=== PATIENT | male | born 1960 | race Caucasian/White ===

== ENCOUNTER → 2017-02-09 | Outpatient (CLI) | payer BC, OTHER ==
[~2017-02-09] MED LIST: ASPI-232 PO; HYDR25TA5 PO; LISI-461 PO; MULTTAB58 PO; PRAV40TA2 PO; VSNOPS OPB; ZNTT/150 PO
[2017-02-09 09:50] LABS: ALT/SGPT 55 U/L (12-78); BLOOD UREA NITROGEN 20 mg/dl (7-18); BUN/CREATININE RATIO 18.3 (10-20); CALCIUM 9.7 mg/dl (8.5-10.1); CARBON DIOXIDE 29 mmol/L (21-32); CHLORIDE 103 mmol/L (98-107); CHOLESTEROL 205 mg/dl (0-200); GLUCOSE 112 mg/dl (70-99); POTASSIUM 4.3 mmol/L (3.5-5.1); SODIUM 139 mmol/L (136-145); TRIGLYCERIDES 380 mg/dl (0-150); VERY LOW DENSITY LIPOPROT CALC 76 mg/dl
[2017-02-09 09:53] LABS: ALB/GLOB RATIO 1.3 (0.9-2); ALKALINE PHOSPHATASE 61 U/L (45-117); AST/SGOT 20 U/L (15-37); CHOLESTEROL/HDL RATIO 5.1; HDL CHOLESTEROL 40 mg/dl; LDL CHOLESTEROL CALCULATED 89 mg/dl
== END | disposition home or self-care (01) ==
LOC: C.LAB1850 07:08
PROVIDERS: ATTEND Family Medicine
DX: E78.5 Hyperlipidemia, unspecified (principal); I10 Essential (primary) hypertension

== ENCOUNTER 2020-12-18 16:34 | Observation (INO) ==
--- NOTE | 2020-12-18 17:16 | Emergency Department Note ---
Impression & Plan Midsternal chest pain ED Provider Note CHIEF COMPLAINT: Chest pain HISTORY OF PRESENTING ILLNESS: This is a 60-year-old male who presents to the emergency department by private vehicle with complaint of midsternal chest pain that started about 3 PM. The patient states it felt like "indigestion" and came on fairly suddenly, the pain did not radiate, but it did become very intense for short time. Currently he states that his chest pain has fully resolved and he rates his pain level 0/10. He notes that he was driving home from work around 4 PM and started to feel lightheaded and also noticed some pain and numbness/tingling which he describes as a "[id number]-[id number]-lmnriyl" feeling in his left arm with the chest pain, which prompted him to come to the emergency department. He denies any associated shortness of breath, nausea, vomiting, or diaphoresis. He denies any history of SD or known cardiac disease. He does have a history of hypertension and hyperlipidemia, but is not diabetic. He is not a smoker but does use chewing tobacco. He denies any known family history of heart disease. He notes that he has had a stress test in the past that he believes was about 5 years ago. He takes a baby aspirin daily, he denies any other blood thinner medications REVIEW OF SYSTEMS: A complete 10 point review of systems was reviewed with the patient with pertinent positives and negatives as per history of present illness. All else were negative. PAST MEDICAL HISTORY: Hypertension, hyperlipidemia, GERD SOCIAL HISTORY: Lives at home, daily tobacco user ALLERGIES: Reviewed in chart and with the patient PHYSICAL EXAM: CONSTITUTIONAL: Pleasant and cooperative. Nontoxic-appearing and in no acute distress. Well appearing and well nourished. HEENT: Normocephalic, atraumatic. NECK: Supple, full active range of motion without discomfort. No JVD. RESPIRATORY: Clear to auscultation bilaterally with no wheezing, crackles, rhonchi or stridor. Equal expansion bilaterally. CARDIOVASCULAR: Regular rate and rhythm with no murmurs, rubs or gallops. Normal peripheral perfusion, 2+ pulses in all 4 extremities. No pitting edema. GASTROINTESTINAL: Soft, nontender, nondistended. No palpable masses or HSM. Bowel sounds present in all quadrants. No CVA tenderness bilaterally. MUSCULOSKELETAL: Full range of motion of all joints without discomfort. INTEGUMENTARY: No rash or other significant dermatologic conditions noted. NEUROLOGIC: Alert and oriented X 4 with normal affect. 5/5 strength and normal sensation in all 4 extremities. Normal speech. Normal gait observed. ED COURSE AND MEDICAL DECISION MAKING: CC: Patient presenting with complaint of chest pain DIFFERENTIAL DIAGNOSIS: Includes, but not limited to acute coronary syndrome, pulmonary embolism, aortic dissection, pneumothorax, pericarditis, myocarditis, endocarditis, anxiety, musculoskeletal pain, GERD, costochondritis, pneumonia, among others. INTERPRETATION OF LABS: No leukocytosis, no anemia, normal platelets, no significant electrolyte abnormalities, normal renal function, normal liver enzymes. Troponin is undetectable. Coagulation factors within normal limits. EKG: Shows normal sinus rhythm with a rate of 63 bpm, normal intervals, no ST elevation or depression, no ectopy, no significant change when compared to previous EKG from 08/14/2001by my interpretation. MEDICATION RECONCILIATION: I attest that I have personally reviewed the patient's current medication list. INITIAL VITAL SIGNS REVIEW: I reviewed the patient's initial vital signs and interpret them as follows: T: Afebrile; BP: Hypertensive; HR: Within normal limits; RR: Within normal limits; Pulse Ox: Within normal limits on room air. MDM SUMMARY: Patient was evaluated at bedside, history and physical exam performed. Patient is alert and oriented, in no acute distress, resting calmly in stretcher. He is nontoxic-appearing and afebrile. He is noted to be hypertensive. No extremity edema. Blood pressures were performed by myself in both upper extremities and are equal bilaterally. Lungs are clear with good air movement. He is not tachypneic or hypoxic. He is neurologically intact with no focal deficits. He describes a [id number]-bhubred feeling in his left arm, but sensation is intact to light touch and he has normal strength. Cardiac monitoring: An order was placed for continuous cardiac monitoring. The monitor shows a rate of 65 bpm with normal sinus rhythm. Heart score of 4, moderate risk. Orders were placed for labs including troponin, EKG, chest x-ray, CT angio of the chest to evaluate for chest pain. Patient discussed with Dr. Babb, who agrees with my assessment, plan, and disposition. Labs and imaging reviewed, no significant lab abnormalities. Initial troponin is undetectable. Chest x-ray showed mild cardiomegaly with no acute abnormalities. CTA of the chest was negative for aortic dissection, pulmonary embolism, or any other abnormalities. Patient reassessed multiple times throughout ED stay, he has remained hemodynamically stable and chest pain-free, as well as neurologically intact. The patient was updated on all results, and I did recommend admission for observation and a stress test in the morning. The patient was agreeable to this plan. I spoke on the phone with Dr. Kirby, [facility] hospitalist, who agrees to evaluate the patient for admission. The patient was stable at time of admission. The chart was completed utilizing [employer] voice recognition software. Grammatical errors, random word insertions, pronoun errors, and incomplete sentences are an occasional consequence of this system due to software limitations, ambient noise, and hardware issues. Any formal questions or concerns about the content, text, or information contained within the body of this dictation should be directly addressed to the nurse practitioner for clarification. Past Med/Surg History Medical History (Updated 12/18/20 @ 20:42 by NARDA Coles) Benign neoplasm of colon Dyslipidemia Dysplastic nevus Esophageal reflux HTN (hypertension) Impaired fasting glucose Low bone mass Subclinical hyperthyroidism Vitamin D deficiency Social History Tobacco Type: Smokeless Tobacco (Dip or Chew) Preferred Language: Turkish Feels Safe at Home: Yes Allergies Allergies Allergy/AdvReac Type Severity Reaction Status Date / Time simvastatin Allergy Intermediate DRY MOUTH Verified 12/18/20 17:17 ACHY MUSCLES Penicillins Allergy Mild RASH Verified 12/18/20 17:17 Sulfa (Sulfonamide Allergy Mild RASH Verified 12/18/20 17:17 Antibiotics) Home Meds Home Medications Medication Instructions Recorded Confirmed hydrochlorothiazide 25 mg tablet 25 mg PO DAILY 05/01/20 12/18/20 lisinopril 10 mg tablet 10 mg PO DAILY 05/01/20 12/18/20 pravastatin 40 mg tablet 40 mg PO DAILY 05/01/20 12/18/20 aspirin 81 mg tablet,delayed 81 mg PO DAILY 05/07/20 12/18/20 release multivitamin 1 tab PO DAILY 05/07/20 12/18/20 peg [id number] 1 1 drp OPHTHALMIC (EYE) DAILY PRN 05/07/20 12/18/20 %-0.2 %-0.2 % eye drops ascorbic acid (vitamin C) 1,000 mg 1 g PO DAILY tab 07/23/20 12/18/20 tablet cholecalciferol (vitamin D3) 125 mcg PO DAILY 12/18/20 12/18/20 [Vitamin D3] famotidine 40 mg PO HS 12/18/20 12/18/20 fiber 1 tab PO DAILY 12/18/20 12/18/20 pantoprazole 40 mg PO DAILYBB 12/18/20 12/18/20 Previous Rx's Medication Instructions Recorded methimazole 5 mg tablet 10 mg PO DAILY #180 tab 11/18/20 Results & Data (ED) Vital Signs Vital Signs - 24 hr 12/18/20 16:41 12/18/20 16:56 12/18/20 16:57 Temperature 36.6 C Temperature Source Temporal Artery Scan Pulse Rate 64 60 Pulse Rate from SpO2 Sensor Respiratory Rate 18 19 Blood Pressure 163/81 H 162/79 H Blood Pressure Mean 108 106 Blood Pressure Position Sitting Pulse Oximetry 100 Oxygen Delivery Method Room Air Room Air Sepsis Recent Fever Within 48 Hours No Sepsis New/Unexplained Change in Mental Status No Sepsis Action Taken by Nursing No Action Required 12/18/20 16:58 12/18/20 17:00 12/18/20 17:06 Temperature Temperature Source Pulse Rate 64 63 65 Pulse Rate from SpO2 Sensor Respiratory Rate 20 23 12 Blood Pressure 151/100 H 159/95 H Blood Pressure Mean 117 116 Blood Pressure Position Pulse Oximetry Oxygen Delivery Method Sepsis Recent Fever Within 48 Hours Sepsis New/Unexplained Change in Mental Status Sepsis Action Taken by Nursing 12/18/20 17:10 12/18/20 17:20 12/18/20 17:30 Temperature Temperature Source Pulse Rate 66 67 64 Pulse Rate from SpO2 Sensor 67 64 Respiratory Rate 16 20 13 Blood Pressure 146/92 H Blood Pressure Mean 110 Blood Pressure Position Pulse Oximetry 96 98 Oxygen Delivery Method Room Air Room Air Sepsis Recent Fever Within 48 Hours Sepsis New/Unexplained Change in Mental Status Sepsis Action Taken by Nursing 12/18/20 17:40 12/18/20 17:50 12/18/20 18:07 Temperature Temperature Source Pulse Rate 64 64 71 Pulse Rate from SpO2 Sensor 64 64 71 Respiratory Rate 20 17 22 Blood Pressure Blood Pressure Mean Blood Pressure Position Pulse Oximetry 97 97 100 Oxygen Delivery Method Room Air Room Air Room Air Sepsis Recent Fever Within 48 Hours Sepsis New/Unexplained Change in Mental Status Sepsis Action Taken by Nursing 12/18/20 18:10 12/18/20 18:20 12/18/20 18:30 Temperature Temperature Source Pulse Rate 62 64 61 Pulse Rate from SpO2 Sensor 62 65 62 Respiratory Rate 15 18 13 Blood Pressure Blood Pressure Mean Blood Pressure Position Pulse Oximetry 99 98 98 Oxygen Delivery Method Room Air Room Air Room Air Sepsis Recent Fever Within 48 Hours Sepsis New/Unexplained Change in Mental Status Sepsis Action Taken by Nursing 12/18/20 19:00 12/18/20 19:08 12/18/20 19:30 Temperature Temperature Source Pulse Rate 62 61 62 Pulse Rate from SpO2 Sensor 64 62 62 Respiratory Rate 14 14 19 Blood Pressure 166/108 H 167/102 H Blood Pressure Mean 127 123 Blood Pressure Position Pulse Oximetry 96 98 96 Oxygen Delivery Method Sepsis Recent Fever Within 48 Hours Sepsis New/Unexplained Change in Mental Status Sepsis Action Taken by Nursing 12/18/20 19:57 12/18/20 20:00 Temperature Temperature Source Pulse Rate 61 61 Pulse Rate from SpO2 Sensor 61 60 Respiratory Rate 17 15 Blood Pressure 184/106 H 179/108 H Blood Pressure Mean 132 131 Blood Pressure Position Pulse Oximetry 98 98 Oxygen Delivery Method Sepsis Recent Fever Within 48 Hours Sepsis New/Unexplained Change in Mental Status Sepsis Action Taken by Nursing Laboratory Data Result diagrams: 12/18/20 16:55 12/18/20 16:55 Lab Results 12/18/20 12/18/20 12/18/20 Range/Units 16:55 16:55 17:30 WBC 9.88 (4.8-10.8) K/uL RBC 5.22 (4.7-6.1) M/uL Hgb 15.8 (14.0-18.0) g/dL Hct 47.1 (42-52) % MCV 90.2 (80-100) fL MCH 30.3 (25-34) pg MCHC 33.5 (32-36) g/dL RDW Std Deviation 43.3 (36.4-46.3) fL RDW Coeff of Rafael 13.1 (11.5-14.5) % Plt Count 250 (130-400) K/uL MPV 10.5 H (7.4-10.4) fL Immature Gran % (Auto) 0.3 % Neut % (Auto) 49.8 % Lymph % (Auto) 32.3 % [place] % (Auto) 12.8 % Eos % (Auto) 4.5 % Baso % (Auto) 0.3 % Neut # (Auto) 4.93 (1.4-6.5) K/uL Lymph # (Auto) 3.19 (1.2-3.4) K/uL [place] # (Auto) 1.26 H (0.11-0.59) K/uL Eos # (Auto) 0.44 (0-0.5) K/uL Baso # (Auto) 0.03 (0-0.2) K/uL Immature Gran # (Auto) 0.03 H (0.00-0.02) K/uL APTT 27.1 (21.0-31.0) Seconds PTT Ratio 1.0 Sodium 138 (136-145) mmol/L Potassium 3.5 (3.5-5.1) mmol/L Chloride 103 (98-107) mmol/L Carbon Dioxide 27 (21-32) mmol/L Anion Gap 8.0 (3-11) BUN 20 H (7-18) mg/dl Creatinine 1.11 (0.6-1.4) mg/dl Est Cr Clr Drug Dosing 75.0 ml/min Est GFR ( Amer) 82.6 ml/min Est GFR (Non-Af Amer) 71.3 ml/min BUN/Creatinine Ratio 18.3 (10-20) Glucose 99 (70-99) mg/dl Calcium 9.6 (8.5-10.1) mg/dl Magnesium 2.5 H (1.8-2.4) mg/dl Total Bilirubin 0.4 (0.2-1) mg/dl AST 19 (15-37) U/L ALT 41 (12-78) U/L Alkaline Phosphatase 66 (45-117) U/L Troponin I < 0.015 (0-0.045) ng/ml Total Protein 8.3 H (6.4-8.2) gm/dl Albumin 4.8 (3.4-5.0) gm/dl Globulin 3.5 (2.5-4.0) gm/dl Albumin/Globulin Ratio 1.4 (0.9-2) Lipase 136 (73-393) U/L COVID-19 Eval Order 12/18/20 Range/Units 19:10 WBC (4.8-10.8) K/uL RBC (4.7-6.1) M/uL Hgb (14.0-18.0) g/dL Hct (42-52) % MCV (80-100) fL MCH (25-34) pg MCHC (32-36) g/dL RDW Std Deviation (36.4-46.3) fL RDW Coeff of Rafael (11.5-14.5) % Plt Count (130-400) K/uL MPV (7.4-10.4) fL Immature Gran % (Auto) % Neut % (Auto) % Lymph % (Auto) % [place] % (Auto) % Eos % (Auto) % Baso % (Auto) % Neut # (Auto) (1.4-6.5) K/uL Lymph # (Auto) (1.2-3.4) K/uL [place] # (Auto) (0.11-0.59) K/uL Eos # (Auto) (0-0.5) K/uL Baso # (Auto) (0-0.2) K/uL Immature Gran # (Auto) (0.00-0.02) K/uL APTT (21.0-31.0) Seconds PTT Ratio Sodium (136-145) mmol/L Potassium (3.5-5.1) mmol/L Chloride (98-107) mmol/L Carbon Dioxide (21-32) mmol/L Anion Gap (3-11) BUN (7-18) mg/dl Creatinine (0.6-1.4) mg/dl Est Cr Clr Drug Dosing ml/min Est GFR ( Amer) ml/min Est GFR (Non-Af Amer) ml/min BUN/Creatinine Ratio (10-20) Glucose (70-99) mg/dl Calcium (8.5-10.1) mg/dl Magnesium (1.8-2.4) mg/dl Total Bilirubin (0.2-1) mg/dl AST (15-37) U/L ALT (12-78) U/L Alkaline Phosphatase (45-117) U/L Troponin I (0-0.045) ng/ml Total Protein (6.4-8.2) gm/dl Albumin (3.4-5.0) gm/dl Globulin (2.5-4.0) gm/dl Albumin/Globulin Ratio (0.9-2) Lipase (73-393) U/L COVID-19 Eval Order Covid19 at [facility] Administered Medications Discontinued Medications Ioversol (Optiray 350 500ml) 120 ml IV ONCE ONE Stop: 12/18/20 17:59 Last Admin: 12/18/20 17:58 Dose: 120 ml Documented by: [id number] Imaging Data Radiologist's Impression: Chest CTA 12/18/20 17:10 CHEST CTA for AORTIC DISSECTION CT DOSE: 1136.75 mGy.cm HISTORY: Atypical chest pain, left arm numbness, lightheaded TECHNIQUE: Multiaxial CT images of the chest were performed both before and after the intravenous administration of contrast to evaluate the aorta. Maximal intensity projection images were also obtained. A dose lowering technique was utilized adhering to the principles of ALARA. COMPARISON STUDY: Chest 12/18/2020. FINDINGS: Noncontrast imaging through the chest shows no evidence for an intramural hematoma within the thoracic aorta. Normal caliber thoracic aorta with no evidence for dissection. No filling defects within the pulmonary arteries to suggest a pulmonary embolus. Limited views of the upper abdomen demonstrate a normal liver, spleen, and adrenal glands. Normal esophagus. No mediastinal or hilar lymphadenopathy. No pleural or pericardial effusions. A 5 mm right thyroid nodule. This does not meet CT criteria for follow-up. No fractures within the visualized osseous structures. No pneumothorax. The central airways are patent. A 3 mm subpleural nodule within the left lower lobe on image 164. No focal lung consolidations to suggest pneumonia. Mild nodular thickening along the right major fissure. This is likely benign. IMPRESSION: 1. No evidence for an aortic dissection. 2. A 3 mm subpleural nodule within the left lower lobe. Please refer to the chart below for recommended follow-up. 3. No focal lung consolidations to suggest pneumonia. ACT 112: Negative or not required by law. Electronically signed by: Abhi Madrid M.D. 12/18/2020 6:15 PM Chest X-Ray 12/18/20 17:10 SINGLE VIEW CHEST CLINICAL HISTORY: Atypical chest pain. FINDINGS: An AP, portable, upright chest radiograph is obtained. No prior studies are available for comparison at the time of dictation. The heart is enlarged. The pulmonary vasculature is noncongested. Mild atelectasis is noted the lung bases. The lungs and pleural spaces are otherwise clear. No pneumothorax is seen. The bony thorax is grossly intact. IMPRESSION: Mild cardiomegaly with no acute cardiopulmonary abnormality. ACT 112: Negative or not required by law. Electronically signed by: Scott Herring M.D. 12/18/2020 5:50 PM Discharge Plan Visit Data Chief Complaint: Chest Pain Stated Complaint: CHEST PAIN, LEFT HAND IS NUMB ED Provider: Regla Babb ED Midlevel Provider: Ama Jacome Discharge Problem: Midsternal chest pain Patient Disposition: Being Evaluated by Hospitalist Condition: Good Forms Stand Alone Forms: My [facility] Prescriptions Prescriptions: No Action methimazole 5 mg tablet 10 mg PO DAILY Qty: 180 RF: 1 aspirin [Adult Aspirin Regimen] 81 mg tablet,delayed release (DR/EC) 81 mg PO DAILY RF: 0 multivitamin Tablet 1 tab PO DAILY RF: 0 Visine Dry Eye Relief 1-0.2-0.2 % drops 1 drp ophthalmic (eye) DAILY PRN (Reason: Dry Eyes) RF: 0 hydrochlorothiazide 25 mg tablet 25 mg PO DAILY RF: 0 lisinopril 10 mg tablet 10 mg PO DAILY RF: 0 pravastatin 40 mg tablet 40 mg PO DAILY RF: 0 ascorbic acid (vitamin C) 1,000 mg tablet 1 g PO DAILY RF: 0 famotidine 40 mg Tablet 40 mg PO HS RF: 0 pantoprazole 40 mg tablet,delayed release (DR/EC) 40 mg PO DAILYBB RF: 0 fiber Tablet,Chewable 1 tab PO DAILY RF: 0 cholecalciferol (vitamin D3) [Vitamin D3] 125 mcg (5,000 unit) Tablet 125 mcg PO DAILY RF: 0 Referrals Referrals: Sourav Savage, DO [Primary Care Provider] -
[2020-12-18 17:26] LABS: Basophils # (auto) 0.03 K/uL (0-0.2); Basophils % (auto) 0.3 %; Eosinophils # (auto) 0.44 K/uL (0-0.5); Eosinophils % (auto) 4.5 %; Hematocrit (blood only) 47.1 % (42-52); Hemoglobin 15.8 g/dL (14.0-18.0); Immature Granulocytes # (auto) 0.03 K/uL (0.00-0.02); Immature Granulocytes % (auto) 0.3 %; Lymphocytes # (auto) 3.19 K/uL (1.2-3.4); Lymphocytes % (auto) 32.3 %; Mean Corpuscular Hemoglobin 30.3 pg (25-34); Mean Corpuscular Hgb Conc 33.5 g/dL (32-36); Mean Corpuscular Volume 90.2 fL (80-100); Mean Platelet Volume 10.5 fL (7.4-10.4); Monocytes # (auto) 1.26 K/uL (0.11-0.59); Monocytes % (auto) 12.8 %; Neutrophils # (auto) 4.93 K/uL (1.4-6.5); Neutrophils % (auto) 49.8 %; Platelet Count 250 K/uL (130-400); RDW Coefficient of Variation 13.1 % (11.5-14.5); RDW Standard Deviation 43.3 fL (36.4-46.3); Red Blood Count 5.22 M/uL (4.7-6.1); White Blood Count 9.88 K/uL (4.8-10.8)
[2020-12-18 17:33] LABS: Alanine Aminotransferase 41 U/L (12-78); Albumin Level 4.8 gm/dl (3.4-5.0); Aspartate Aminotransferase 19 U/L (15-37); BUN Creatinine Ratio 18.3 (10-20); Blood Urea Nitrogen 20 mg/dl (7-18); Calcium 9.6 mg/dl (8.5-10.1); Carbon Dioxide 27 mmol/L (21-32); Chloride 103 mmol/L (98-107); Est GFR (African American) 82.6 ml/min; Est GFR (Non-African American) 71.3 ml/min; Glucose 99 mg/dl (70-99); Lipase 136 U/L (73-393); Potassium 3.5 mmol/L (3.5-5.1); Sodium 138 mmol/L (136-145)
[2020-12-18 17:37] LABS: Albumin Globulin Ratio 1.4 (0.9-2); Alkaline Phosphatase 66 U/L (45-117); Bilirubin,Total 0.4 mg/dl (0.2-1); Globulin 3.5 gm/dl (2.5-4.0); Total Protein 8.3 gm/dl (6.4-8.2); Troponin I < 0.015 ng/ml (0-0.045)
--- NOTE | 2020-12-18 17:52 | XRay Report ---
SINGLE VIEW CHEST CLINICAL HISTORY: Atypical chest pain. FINDINGS: An AP, portable, upright chest radiograph is obtained. No prior studies are available for c omparison at the time of dictation. The heart is enlarged. The pulmonary vasculature is noncongested . Mild atelectasis is noted the lung bases. The lungs and pleural spaces are otherwise clear. No pneu mothorax is seen. The bony thorax is grossly intact. IMPRESSION: Mild cardiomegaly with no acute cardiopulmonary abnormality. ACT 112: Negative or not required by law. Electronically signed by: Scott Herring M.D. 12/18/2020 5:50 PM
[2020-12-18 17:54] LABS: Partial Thromboplastin Time 27.1 Seconds (21.0-31.0)
[2020-12-18] MEDS ORDERED: OPTIRAY 350 500ml IV ONE (17:58)
--- NOTE | 2020-12-18 18:17 | CT Scan Report ---
CHEST CTA for AORTIC DISSECTION CT DOSE: 1136.75 mGy.cm HISTORY: Atypical chest pain, left arm numbness, lightheaded TECHNIQUE: Multiaxial CT images of the chest were performed both before and after the intravenous adm inistration of contrast to evaluate the aorta. Maximal intensity projection images were also obtained . A dose lowering technique was utilized adhering to the principles of ALARA. COMPARISON STUDY: Chest 12/18/2020. FINDINGS: Noncontrast imaging through the chest shows no evidence for an intramural hematoma within t he thoracic aorta. Normal caliber thoracic aorta with no evidence for dissection. No filling defects within the pulmonary arteries to suggest a pulmonary embolus. Limited views of the upper abdomen demo nstrate a normal liver, spleen, and adrenal glands. Normal esophagus. No mediastinal or hilar lymphad enopathy. No pleural or pericardial effusions. A 5 mm right thyroid nodule. This does not meet CT cri teria for follow-up. No fractures within the visualized osseous structures. No pneumothorax. The cent ral airways are patent. A 3 mm subpleural nodule within the left lower lobe on image 164. No focal robbin ng consolidations to suggest pneumonia. Mild nodular thickening along the right major fissure. This i s likely benign. IMPRESSION: 1. No evidence for an aortic dissection. 2. A 3 mm subpleural nodule within the left lower lobe. Please refer to the chart below for recommend ed follow-up. 3. No focal lung consolidations to suggest pneumonia. ACT 112: Negative or not required by law. Electronically signed by: Abhi Madrid M.D. 12/18/2020 6:15 PM
[2020-12-18 19:53] LABS: Magnesium 2.5 mg/dl (1.8-2.4)
[2020-12-18] MEDS ORDERED: lisinopril 10 MG TAB PO STA (20:49)
--- NOTE | 2020-12-18 20:50 | CT Scan Report ---
HEAD CT NONCONTRAST CT DOSE: 614.27 mGy.cm HISTORY: Headache. Hypertension. TECHNIQUE: Multiaxial CT images of the head were performed without the use of intravenous contrast. A utomated exposure control was utilized for this study. A dose lowering technique was utilized adheri ng to the principles of ALARA. Comparison: None. Findings: The paranasal sinuses and mastoid air cells are clear. The calvarium and skull base are int act. There is residual contrast within the brain from the recent chest CTA. This results in suboptima l evaluation for intracranial hemorrhage. However, no definite intracranial hemorrhage identified. Th ere is no mass, midline shift, acute infarct. Impression: No definite acute intracranial abnormality. There is residual contrast within the brain from the rece nt chest CTA. ACT 112: Negative or not required by law. Electronically signed by: Abhi Madrid M.D. 12/18/2020 8:48 PM
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
[2020-12-18] MEDS ORDERED: CLOPIDOGREL BISULFATE 75 MG TAB PO STA (21:43)
[2020-12-18] MEDS ORDERED: LORazepam 0.5 MG/1 ML VIAL IV STA (21:43)
[2020-12-18] MEDS ORDERED: hydrALAZINE HCL 20 MG/ML VIAL IV STA (21:44)
[2020-12-18] MEDS ORDERED: LORazepam 0.5 MG/1 ML VIAL IV PRN (23:12)
[2020-12-18] MEDS ORDERED: MoRPHine SULFATE 4 MG/ML 1 ML CARP\\VIAL IV PRN (23:12)
[2020-12-18] MEDS ORDERED: traMADol HCL 50 MG TABLET PO PRN (23:12)
[2020-12-18] MEDS ORDERED: FAMOTIDINE 40 MG TABLET PO SCH (23:12)
[2020-12-18] MEDS ORDERED: PROMETHAZINE HCL 12.5 MG in SODIUM CHLORIDE 0.9% 50 ML IV PRN (23:12)
[2020-12-18] MEDS ORDERED: ACETAMINOPHEN 325 MG TAB PO PRN (23:12)
[2020-12-18] MEDS ORDERED: ARTIFICIAL TEARS OP PRN (23:42)
[2020-12-18] MEDS ORDERED: POTASSIUM CHLORIDE 40 MEQ in SODIUM CHLORIDE 0.9% 1000ML 1,000 ML IV ONE (23:45)
[2020-12-19] MEDS ORDERED: PANTOprazole 40 MG TAB PO SCH (06:30)
--- NOTE | 2020-12-19 07:14 | Magnetic Resonance Report ---
MR ANGIOGRAM OF THE BRAIN CLINICAL HISTORY: Transient ischemic attack. COMPARISON STUDY: MRI of the brain performed concurrently on 12/19/2020. TECHNIQUE: 3-D [id number] MR angiography of the intracranial circulation is performed. 3-D tumble views are created and assessed. IV contrast was not administered for this examination. FINDINGS: There is a right posterior communicating artery. The internal carotid arteries are widely p atent bilaterally, as are the anterior and middle cerebral arteries. The vertebrobasilar system and p osterior cerebral arteries are widely patent. The vertebral arteries are codominant. There is no aneu rysm, high-grade stenosis, or focal vessel cutoff seen throughout the intracranial circulation. The b rain parenchyma is normal as visualized. IMPRESSION: Unremarkable MR angiogram of the brain. ACT 112: Negative or not required by law. Electronically signed by: Scott Herring M.D. 12/19/2020 7:13 AM
[2020-12-19 07:17] LABS: Basophils # (auto) 0.03 K/uL (0-0.2); Basophils % (auto) 0.4 %; Eosinophils % (auto) 4.3 %; Hematocrit (blood only) 45.8 % (42-52); Hemoglobin 15.2 g/dL (14.0-18.0); Immature Granulocytes # (auto) 0.02 K/uL (0.00-0.02); Immature Granulocytes % (auto) 0.3 %; Lymphocytes # (auto) 1.76 K/uL (1.2-3.4); Mean Corpuscular Hemoglobin 30.2 pg (25-34); Mean Corpuscular Hgb Conc 33.2 g/dL (32-36); Mean Corpuscular Volume 91.1 fL (80-100); Mean Platelet Volume 10.3 fL (7.4-10.4); Monocytes # (auto) 0.95 K/uL (0.11-0.59); Monocytes % (auto) 13.5 %; Neutrophils # (auto) 3.99 K/uL (1.4-6.5); Neutrophils % (auto) 56.5 %; Platelet Count 216 K/uL (130-400); RDW Coefficient of Variation 13.4 % (11.5-14.5); RDW Standard Deviation 44.7 fL (36.4-46.3); Red Blood Count 5.03 M/uL (4.7-6.1); White Blood Count 7.05 K/uL (4.8-10.8)
--- NOTE | 2020-12-19 07:19 | Ultrasound Report ---
ULTRASOUND OF THE CAROTID ARTERIES CLINICAL HISTORY: Transient ischemic attack. COMPARISON STUDY: No priors. TECHNIQUE: Real-time, grayscale, and color Doppler sonography of the carotid arteries is performed. I mages are reviewed in the transverse and longitudinal planes. FINDINGS: Blood pressure in the right arm measures 147/82 and blood pressure in the left arm measures 129/82. The carotid arteries are patent bilaterally and demonstrate antegrade flow. There is minimal atherosc lerotic plaque identified. Normal doppler arterial waveforms are seen throughout. Velocity measuremen ts are listed below. Common carotid peak systolic velocity (cm/sec): RIGHT: 61 LEFT: 59 ICA proximal peak systolic velocity (cm/sec): RIGHT: 50 LEFT: 59 ICA mid peak systolic velocity (cm/sec): RIGHT: 55 LEFT: 43 ICA distal peak systolic velocity (cm/sec): RIGHT: 63 LEFT: 53 ICA/CC peak systolic ratio: RIGHT: 1.0 LEFT: 1.0 Antegrade flow was shown in the vertebral arteries. The external carotid arteries are patent. IMPRESSION: 1. There is no sonographic evidence of hemodynamically significant stenosis in the right or left pretty tid arterial system. 2. Antegrade flow is shown in the vertebral arteries. ACT 112: Negative or not required by law. Electronically signed by: Scott Herring M.D. 12/19/2020 7:18 AM
--- NOTE | 2020-12-19 07:41 | Magnetic Resonance Report ---
MRI OF THE BRAIN WITHOUT CONTRAST CLINICAL HISTORY: Transient ischemic attack. COMPARISON STUDY: Head CT December 18, 2020. TECHNIQUE: Utilizing a 1.5 Mallika magnet and dedicated coil, multiplanar, multiecho imaging of the bra in was performed without IV contrast. FINDINGS: There are no foci of restricted diffusion to suggest acute infarct. No acute intracranial h emorrhage, midline shift or mass effect is present. Ventricular system is normal. Basilar cisterns ar e patent. There are no extra axial collections. Flow-voids for the major intracranial vessels are pre sent. No intracranial masses identified on this unenhanced examination. Signal within the left transv erse and sigmoid sinuses likely due to slow flow. Vertebral signal is normal. Postoperative findings within the sinuses are present. IMPRESSION: No acute intracranial findings. ACT 112: Negative or not required by law. Electronically signed by: Tunde Solano M.D. 12/19/2020 7:39 AM
[2020-12-19 07:46] LABS: Estimated Average Glucose 111 mg/dl; Hemoglobin A1C 5.5 % (4.5-5.6)
--- NOTE | 2020-12-19 07:53 | Electrocardiogram Report ---
Test Reason : Blood Pressure : / mmHG Vent. Rate : 063 BPM Atrial Rate : 063 BPM P-R Int : 132 ms QRS Dur : 096 ms QT Int : 420 ms P-R-T Axes : 054 007 026 degrees QTc Int : 429 ms Normal sinus rhythm Normal ECG When compared with ECG of 14-AUG-2001 10:07, No significant change was found Confirmed by Neno Antonio ([id number]) on 12/19/2020 7:53:10 AM Referred By: REFERRED SELF Confirmed By:Neno Antonio
[2020-12-19 07:55] LABS: BUN Creatinine Ratio 16.5 (10-20); Calcium 8.9 mg/dl (8.5-10.1); Creatinine Clr Calc Pharmacy 88.3 ml/min; Est GFR (Non-African American) 87.2 ml/min
[2020-12-19] MEDS ORDERED: MULTIVITAMIN TAB PO SCH (09:00)
[2020-12-19] MEDS ORDERED: methIMAzole 5 MG TABLET PO SCH (09:00)
[2020-12-19] MEDS ORDERED: lisinopril 10 MG TAB PO SCH (09:00)
[2020-12-19] MEDS ORDERED: CLOPIDOGREL BISULFATE 75 MG TAB PO SCH (09:00)
[2020-12-19] MEDS ORDERED: ENOXAPARIN INJ 40 MG/0.4 ML SYR SQ SCH (09:00)
[2020-12-19] MEDS ORDERED: ASPIRIN 81 MG ECTAB PO SCH (09:00)
[2020-12-19] MEDS ORDERED: PRAVASTATIN SOD 40 MG TAB PO SCH (09:00)
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
== END 2020-12-19 17:52 | disposition home or self-care (01) ==
LOC: 2N 16:34 → ED 16:34 → SUATTDRO 21:59 → 2N 22:33